=== PATIENT | female | born 1945 | race Asian ===

== ENCOUNTER 2018-06-19 20:36 | Emergency (ER) | payer OTHER ==
[~2018-06-19] VITALS: Ht 149.9 cm; Wt 51.3 kg
[2018-06-19] MEDS ORDERED: InsuLIN REG 1unit/0.01ml Soln (100units/ml) IV ONE (21:30)
[2018-06-19] MEDS ORDERED: SODIUM CHLORIDE 0.9% 1,000 ML IV ONE ×2 (21:30→22:15)
[2018-06-19 21:53] LABS: Eosinophils # (auto) 0.8 uL; Hematocrit 33.1 % (36.0-46.0); Hemoglobin 11.5 g/dL (12.2-16.2); Lymphocytes # (auto) 1.4 uL; Lymphocytes % (auto) 12.5 % (10.0-50.0); Monocytes # (auto) 0.7 uL; Red Blood Cells 3.67 10^6/uL (4.0-5.20); Red Cell Distribution Width 14.7 % (11.8-14.3)
[2018-06-19 21:56] LABS: Basophils # (auto) 0.1 uL; Basophils % (auto) 1.2 % (0.0-2.0); Eosinophils % (auto) 6.9 % (0.0-7.0); Mean Corpuscular Hemoglobin 31.2 pg (28.0-32.0); Mean Corpuscular Hgb Conc. 34.6 g/dL (32.0-36.0); Mean Corpuscular Volume 90.3 fL (80.0-100.0); Monocytes % (auto) 6.2 % (0.0-12.0); Neutrophils # (auto) 8.2 uL; Neutrophils % (auto) 73.2 % (37.0-80.0); Platelet Count (auto) 461 10^3/uL (140-450); White Blood Cell 11.2 10^3/uL (4.4-10.8)
[2018-06-19 22:06] LABS: Albumin 3.6 g/dL (3.4-5.0); Anion Gap 9 (5-15); Blood Urea Nitrogen 42 mg/dL (7-18); Calcium 8.2 mg/dL (8.5-10.1); Carbon Dioxide 22 mmol/L (21-32); Chloride 100 mmol/L (98-107); Potassium 4.9 mmol/L (3.5-5.1); Sodium 131 mmol/L (136-145)
[2018-06-19 22:08] LABS: BUN/Creatinine Ratio 19.4; GFR African American 29 mL/min; GFR Non-African American 24 mL/min
[2018-06-19 22:14] LABS: Alanine Aminotransferase 35 U/L (13-56); Alkaline Phosphatase 134 U/L (45-117); Aspartate Aminotransferase 22 U/L (15-37); Bilirubin, Total 0.4 mg/dL (0.2-1.0); Total Protein 7.6 g/dL (6.4-8.2)
[2018-06-19 22:18] LABS: Glucose 437 mg/dL (74-106)
[2018-06-19 23:25] LABS: Amylase 53 U/L (25-115); Lipase 253 U/L (73-393)
[2018-06-19 23:37] LABS: Urine Bacteria FEW /hpf (None Seen); Urine Blood Negative /uL (Negative); Urine Specific Gravity 1.004 (1.001-1.035); Urine WBC 1 /hpf (0 - 5)
[2018-06-20 01:05] VITALS: BP 162/78
== END 2018-06-20 03:15 | disposition home or self-care (01) ==
LOC: ER 20:41
DX: E11.65 Type 2 diabetes mellitus with hyperglycemia (principal); N39.0 Urinary tract infection, site not specified; I10 Essential (primary) hypertension
CPT/HCPCS: 36415; 80053; 81001; 82010; 82150; 82962; 83690; 83735; 83880; 84484; 85025; 93005; 96361; 96374; 99284; J1815; J7030